=== PATIENT | female | born 1985 | race Caucasian/White ===

== ENCOUNTER → 2016-07-31 | Outpatient (CLI) | payer BC ==
--- NOTE | 2016-08-04 18:40 | DI ---
PELVIC ULTRASOUND, 07/31/2016 10:45 AM Clinical History: Pelvic pain. Previous Exam: None at this facility. Technique: Transabdominal and transvaginal scans are performed. 50 x 65 x 100 mm. There is a septum in the central uterine canal dividing the central uterine canal s o that there is an endometrial lining contiguous with the right cornu from the left endomet rial lining that is contiguous with the left cornu. Scans through the cervix show what apparently rep resents possibly 2 different uterine canals, but this is not definite especially since there are perry facts at the junction between the cervix and uterus. The ovaries are normal. There are no fluid colle ctions or masses. Readin. There is a definite septum dividing the uterus and half, but we are unable to confirm that there are 2 separate cervical canals. 2. Both ovaries are normal. 3. On clinical exam, this patient apparently has a thin septum dividing the vaginal canal but only a single external cervical os is visible.
== END ==
LOC: US 10:40
PROVIDERS: ATTEND Obstetrics & Gynecology
DX: N94.6 Dysmenorrhea, unspecified (principal); Q51.818 Other congenital malformations of uterus; R10.2 Pelvic and perineal pain; N97.9 Female infertility, unspecified
CPT/HCPCS: 76830; 76856

== ENCOUNTER 2018-01-21 16:23 | Observation (INO) ==
[2018-01-21 16:52] LABS: Hematocrit [HCT] 34.9 % (37.0-47.0); Hemoglobin [HGB] 11.5 g/dL (12.0-16.0); MEAN CORPUSCULAR HEMOGLOBIN 30.8 PG (27-31); MEAN CORPUSCULAR VOLUME 93.6 FL (81-99); MEAN PLATELET VOLUME 9.5 FL (7.4-12.2); RED BLOOD COUNT 3.73 10^6/uL (4.20-5.40)
[2018-01-21 17:05] LABS: BLOOD UREA NITROGEN 11 mg/dL (7-22); BUN/CREATININE RATIO 13.75 (6-20); SERUM ALBUMIN 3.3 g/dL (3.5-4.8)
[2018-01-21] MEDS ORDERED: LIDOCAINE W/ SODIUM BICARB 0.5 ML SYR SUBD PRN (17:49)
[2018-01-21] MEDS ORDERED: Ondansetron ODT Tab 4 MG TAB PO PRN (17:49)
[2018-01-21] MEDS ORDERED: ONDANSETRON 4 MG/2 ML VIAL IVP PRN (17:49)
[2018-01-21] MEDS ORDERED: CALCIUM CARBONATE 500 MG (TUMS) CHEWABLE TABLET PO PRN (17:49)
--- NOTE | 2018-01-21 18:00 | OB.PROGRES ---
Interval History: The patient is a 32-year-old at 33 and one sevenths weeks who started feeling poorly this afternoon with lightheadedness. 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 Repeat blood pressure showed a systolic blood pressure 170. The patient did not have a headache or right upper quadrant pain. The patient went home so that she could then presented to [facility] and she took her blood pressure 1 more time and the blood pressure was 180/90. The patient is not sure if her blood pressure cuff at home has been calibrated recently. The patient had called my office and talked to my nurse and the nurse suggested that she present to labor and delivery. The patient went to labor and delivery and her first blood pressure was noted to be 161/93 and a repeat blood pressure was 142/84. The patient denies headache or right upper quadrant pain. Follow-up blood pressures have mainly been normal in the supine position with a left or right tilt. The patient states that she had a history of elevated blood pressures with her second with blood pressures in the 140s over 90s. Patient states that she was not specifically diagnosed with preeclampsia. This has essentially been uncomplicated. The patient does have hypothyroidism and she is currently taking levothyroxine. 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 The patient has a history of 2 C-sections. The patient desires a repeat and possibly a tubal ligation. The patient denies headache or right upper quadrant pain. Please see the H&P below from the initial OB visit. The patient is a 32-year-old white female with LMP who had an ultrasound on 07/15/2017 which showed an early intrauterine at 5-6/7 weeks with cardiac activity. The patient's history is significant for uterine didelphys with the IUP located on the left uterine cavity. Both ovaries were normal. The patient has been taking micronized progesterone since that time. Additionally, the patient has hypothyroidism and was on 175 g of Synthroid and was increased to 100 g of Synthroid or levothyroxine at the time of diagnosis of the early IUP. The patient has not had any bleeding. No pain. The patient presents today for her first OB appointment. 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 The patient cannot recall. Past surgical history significant for times tube for breech. No D&Cs for her to SABs. No known drug allergies No tobacco, occasional alcohol, none since she thought she was . No drugs. Current medications multivitamin and levothyroxine 200 g daily. [employer] history with menarche age 10 or 11. Regular cycle history. No abnormal Pap smear history with last Pap smear being July 2014 but HPV was not completed at that time. No STI history. OB history was x2 for breech presentations. 2 miscarriages with D&C history. Intake Chief Complaint: Menstrual irregularity Note(s): Pt in office for NOB visit. Had US on 07/15/17. 5 6/7 wks Allergies Allergy/AdvReac Type Severity Reaction Status Date / Time No Known Allergies Allergy Unverified 07/30/17 08:51 Home Medications Medication Instructions Recorded Confirmed Type Xyl129/Iron Fum/Folic/Docusate 1 tab PO DAILY tab 02/06/17 History [ 19 Tablet] levothyroxine 200 mcg tablet 200 mcg PO .COMPLEX #30 tab 07/15/17 07/15/17 Rx progesterone micronized 200 mg 200 mg PO BID #60 cap 07/15/17 07/15/17 Rx capsule Is last menstrual period known: LMP known Last menstrual period: 06/03/17 Visit Vitals 07/30/17 08:50 Height 5 ft 6 in Weight 195 lb Body Mass Index (BMI) 31.4 Body Surface Area 2.06 Blood Pressure 100/72 Blood Pressure Position Sitting Respiratory Rate 18 Pulse Rate 76 Pulse Ox 99 Oxygen Delivery Method room air [facility]* Medical History Hypothyroidism affecting in first trimester (Acute) Previous section (Acute) Early stage of (Acute) Hypothyroidism Surgical History History of extraction of renal calculus (~2005) Status post colonoscopy (~2005) Status post primary low transverse section (02/06/05) Status post primary low transverse section (01/13/08) Family History Mother Hypothyroidism BROTHER Hypothyroidism BROTHER Hyperthyroidism Review of Systems Const Denies fatigue, Denies fever(s), Denies weight gain, Denies weight loss, Denies headache(s) Eyes Denies itchy eyes, Denies blurry vision, Denies diplopia, Denies pain, Denies loss of vision ENT Denies headache(s), Denies nasal discharge, Denies nasal obstruction, Denies sore throat, Denies abnormal hearing Card Denies chest pain, Denies claudication, Denies palpitations, Denies pedal edema , Denies dyspnea Resp Denies cough, Denies wheezing, Denies dyspnea GI Denies abdominal pain, Denies nausea, Denies vomiting, Denies diarrhea, Denies constipation Denies dysuria, Denies hematuria, Denies urinary frequency, Denies vaginal discharge Musc Denies back pain, Denies joint swelling, Denies muscle weakness, Denies abnormal gait Skin Denies lesions, Denies changing lesions, Denies pruritus, Denies rash Neuro Denies abnormal gait, Denies focal weakness, Denies headache(s), Denies loss of vision, Denies abnormal hearing Psych Denies anxiety, Denies irritability, Denies abnormal sleep pattern Endo Denies fatigue, Denies palpitations Adis/Lymph Denies easy bruising, Denies lymphadenopathy Aller/Immun Denies uticaria, Denies seasonal rhinorrhea, Denies itchy eyes, Denies wheezing Exam Const General: comfortable and cooperative; no in distress Orientation: oriented x3 and alert Resp Effort & Inspection: normal respiratory effort; no labored, pursed lip breathing , retractions, stridor or audible wheezes Auscultation: clear to auscultation bilaterally; no crackles, rales, diminished lung sounds, rhonchi or wheezes Cardio Rhythm: regular rhythm Heart Sounds: S1 normal and S2 normal; no murmur, rub, gallop or click GI Inspection: normal to inspection; no distended Palpation: soft; no guarding, aortic enlargement, hernia, mass or rigid Auscultation: normal bowel sounds Other: She has a vaginal septum. The cervix on the patient's left side was visualized. No blood. Bimanual exam showed that the uterus was midplane uterus is slightly enlarged. Limited transvaginal ultrasound showed IUP with cardiac activity around 150. [place]-rump measurements were measuring around 7-1/7 week to 7-2/7 weeks. These were not the best crown-rump measurements. The patient will return in 2- 3 weeks for measurements. Neuro General: alert, oriented x3 and normal sensation to monofilament Cranial Nerves: CN's II-XI intact bilaterally, EOM intact bilaterally and PERRL Cognition: normal cognition Speech: speech normal Gait: normal gait Psych Appearance: grossly normal Mental Status: mental status grossly normal Speech and Movement: speech and movement normal Mood and Affect: mood and affect normal Assessment & Plan Problems 1. Early stage of Z34.90 Patient has an early gestation with cardiac activity. By the initial ultrasound that she had on 07/15/2017, the TRINI would be 03/12/2018. I will have the patient return in 2-3 weeks so that I can view a good crown-rump length and get a good measurement. Currently, I will use the TRINI of 2017. The patient will continue to take her micronized progesterone until 13-6/ 7 weeks. New OB labs were ordered. OB literature was given to the patient. Precautions were discussed. The patient has a history of 2 sections for breech presentation and a repeat will be planned. The patient also would like a tubal ligation at that time. 2. Previous section Z98.891 Patient has a history of x2. A repeat section will be performed. The placental location will be examined at the 20 week survey ultrasound. 3. Hypothyroidism affecting in first trimester O99.281; E03.9 Patient does have hypothyroidism. Her levothyroxine was increased to 200 g on 07/15/2017. With the new OB labs today, I will check a free T4 and TSH and then every 4 weeks at least a TSH. Plan The patient will follow-up in 2-3 weeks for repeat vaginal ultrasound to confirm dating. New OB labs. Objective - Cervical Exam Cervical Exam: Deferred currently [place]: Rare contraction Heart Rate: Variability - Labs CBC and BMP: 01/21/18 16:45 01/21/18 16:45 - Vital Signs Last Taken Vital Signs: Vital Signs - Last Taken Temperature 97.8 F 01/21/18 16:41 Pulse Rate 91 01/21/18 16:41 Respiratory Rate 18 01/21/18 16:41 Blood Pressure 142/84 01/21/18 16:41 Pulse Ox 98 01/21/18 16:41 - Additional Details Additional Details: Lungs clear to auscultation Heart regular rate and rhythm Abdomen is gravid and soft and nontender without guarding or rebound Extremity had 1+ edema bilaterally Reflexes were 2+ bilaterally No clonus Assessment and Plan - Assessment / Plan Additional Assessment/Plan Details: Assessment: IUP 33-07/14 week with elevated blood pressures today at work and then here at [facility] initially. The patient denies headache or right upper quadrant pain. Initial labs were normal. The patient's creatinine was 0.8 which is the upper limits for normal for an OB patient. Liver function tests were normal. Platelets were normal. Patient is not hemoconcentrated. Repeat blood pressures while the patient is supine with a left or right tilt have been normal. Plan: With the patient's elevated blood pressures at work but also her initial blood pressure here of 161/93, I would like to observe the patient and complete serial blood pressures but also collected 24-hour urine for total protein. Also , I offered the patient betamethasone 12 mg IM now and repeat in 24 hours for lung maturity in case the patient's hypertension worsens and the patient develops preeclampsia with severe signs or symptoms and would require an early delivery. The patient and I discussed the betamethasone for lung maturity and we discussed that sometimes the patient would have difficulty sleeping for a couple days and some mood swings but other than that there are not a lot of complications or side effects of the betamethasone. The patient agreed to the betamethasone. I will check labs again tomorrow afternoon unless the patient's blood pressures elevate overnight. An IV will be started. The patient specific gravity was 1.005 so I will not give her a bolus. Currently, the patient may have a regular diet but the patient's blood pressures elevate I will make her nothing by mouth.
[2018-01-21] MEDS: BETAMET ACET/BETAMET NA PH 6 MG/1 ML - 5 ML IM SCH (18:30)
[2018-01-21] MEDS: Lactated Ringers 1,000 ML PRIMARY IV SCH ×2 (18:40→23:14)
[2018-01-22] MEDS: Lactated Ringers 1,000 ML PRIMARY IV SCH ×3 (07:31→23:08)
[2018-01-22] MEDS: Prenatal Multivitamin Tab 1 TAB TAB PO SCH (09:00)
--- NOTE | 2018-01-22 09:00 | DI ---
US OB , Limited,01/22/2018 7:00 AM: Clinical History: Hypertension. Previous Exam: October 01, 2017 Findings: Multiple transabdominal grayscale and color Doppler sonographic images are obtained through the pelvi s, and demonstrate a single live intrauterine gestation. Amniotic fluid index is normal (14.1 cm). Estimated gestational age is determined by a composite of biparietal diameter, head circumference, ab dominal circumference and femur length yielding an estimated gestational age by ultrasound of 33 week s 2 days. Detected Doppler heart tones measured 136 beats per minute. Estimated weight is 2098 g (33rd percentile). Impression: Single live intrauterine gestation with size equal to dates. Fetus measures 33rd percentile for estimated weight.
--- NOTE | 2018-01-22 09:12 | OB.PROGRES ---
Interval History: The patient states that she has no headache. The patient has been feeling more contractions since she was notified that she was having contractions. The patient states that now that she thinks about it, the patient has been having some contractions for some time. Positive movement, no leak of fluid, no bleeding. The patient is collecting a 24-hour urine for total protein. The patient had an ultrasound this morning from radiology. Objective - Cervical Exam Cervical Exam: Deferred currently [place]: Irregular contractions every 2-5 minutes. Sometimes more regular than others. This may be secondary to not picking up contractions well. More uterine irritability. Heart Rate Interpretation Category: Category I - Labs CBC and BMP: 01/21/18 16:45 01/21/18 16:45 - Vital Signs Last Taken Vital Signs: Vital Signs - Last Taken Temperature 98.0 F 01/21/18 22:00 Pulse Rate 75 01/22/18 05:00 Respiratory Rate 16 01/21/18 22:00 Blood Pressure 134/82 01/22/18 05:00 Pulse Ox 96 01/22/18 00:00 - Additional Details Additional Details: Lungs clear to auscultation Heart regular rate and rhythm Abdomen is gravid and soft and nontender Extremities with 1+ edema bilaterally no Hom[place]. Reflexes 1+ bilaterally. Assessment and Plan - Assessment / Plan Additional Assessment/Plan Details: Assessment: IUP 33-2/7 weeks with elevated blood pressures on admission. Patient asymptomatic. The patient has contractions. A fibronectin was completed. Contractions are every 2-5 minutes and currently more frequently. A growth scan was completed this morning and EFW 33rd percentile. SJ 14 cm. Baby in the breech position. The patient's blood pressures have been normal. Yesterday she had another mildly elevated blood pressure prior to showering but since then her blood pressures have been normal while she is on bed rest. 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 Systolic of 170. Patient is status post 1 dose of betamethasone. Second dose today. Plan: Continue to collect 24 urine for total protein fibronectin pending Continue to observe blood pressures. I would like to check the patient's cervix after I have the fibronectin results and after the patient finishes breakfast. I will consider using nifedipine for the patient's contractions. However, this will mask the patient's hypertension results. I would like to check another CBC and CMP this afternoon.
[2018-01-22 15:14] LABS: BASOPHILS # (AUTO) 0.03 10*3/UL; BASOPHILS % (AUTO) 0.1 % (0-1); EOSINOPHILS # (AUTO) 0 10*3/UL; EOSINOPHILS % (AUTO) 0 % (0-8); Hematocrit [HCT] 35.2 % (37.0-47.0); Hemoglobin [HGB] 11.9 g/dL (12.0-16.0); LYMPHOCYTES # (AUTO) 2.85 10*3/uL; MEAN CORPUSCULAR HEMOGLOBIN 31.6 PG (27-31); MEAN CORPUSCULAR HGB CONC 33.8 g/dL (33-37); MEAN CORPUSCULAR VOLUME 93.6 FL (81-99); MEAN PLATELET VOLUME 9.8 FL (7.4-12.2); MONOCYTES # (AUTO) 1.38 10*3/UL (0.3-0.8); MONOCYTES % (AUTO) 6.2 % (5-15); NEUTROPHILS % (AUTO) 79.5 % (50-80); RED BLOOD COUNT 3.76 10^6/uL (4.20-5.40)
[2018-01-22 15:16] LABS: PLATELET MORPHOLOGY COMMENT NORMAL MORPHOLOGY (NORM); RBC MORPHOLOGY COMMENT NORMAL MORPHOLOGY (NORM); WBC MORPHOLOGY COMMENT NORMAL MORPHOLOGY (NORM)
[2018-01-22] MEDS: BETAMET ACET/BETAMET NA PH 6 MG/1 ML - 5 ML IM SCH (17:37)
--- NOTE | 2018-01-22 17:38 | OB.PROGRES ---
Interval History: Patient states that she is doing well and not feeling as many contractions. The patient did make a comment that she has not felt her baby move quite as much since she has been here in the hospital compared other days. The patient actually states that yesterday the baby was moving very frequently and significantly but since she presented to the hospital after having high blood pressures at work, the baby is not move quite as much. No leak of fluid. No bleeding. No headaches. Objective - Cervical Exam Cervical Exam: I checked the patient's cervix earlier about 5 hours ago and her cervical OS was fingertip. fibronectin was negative. [place]: Infrequent contractions. Heart Rate Interpretation Category: Category I (There are periods of time when there are 15 x 15 x2 accelerations but these are infrequent with reviewing the strip.) - Labs CBC and BMP: 01/22/18 15:06 01/22/18 15:06 - Vital Signs Last Taken Vital Signs: Vital Signs - Last Taken Temperature 98.1 F 01/22/18 13:54 Pulse Rate 86 01/22/18 12:05 Respiratory Rate 19 01/22/18 13:54 Blood Pressure 132/84 01/22/18 12:05 Pulse Ox 87 01/22/18 15:46 - Additional Details Additional Details: Lungs clear to auscultation Heart regular rate and rhythm Abdomen soft and gravid and nontender Reflexes were 2+ bilaterally and no clonus Assessment and Plan - Assessment / Plan Additional Assessment/Plan Details: Assessment: IUP 33-2/7 weeks with hypertension. Possible preeclampsia. 24- hour urine results pending. Review of blood pressures has shown that the patient's blood pressures are elevated in the mild range intermittently throughout today. Patient is asymptomatic with no headache or right upper quadrant pain. Repeat labs this afternoon showed normal creatinine at 0.7 which was slightly decreased from the 0.8 yesterday and normal liver function tests. Platelets were normal. The baby's movement has been decreased somewhat today and whether that is secondary to the patient's hypertension I am not sure. Gross scan this morning showed EFW 33rd percentile and SJ was 14 cm. Contractions have decreased in frequency without intervention except for IV fluids and by mouth fluids. Also decreased activity. Plan: I would like to check a BPP her biophysical profile this evening secondary to the decreased movement and the category 1 tracing but the 15 x 15 heart rate accelerations are infrequent. 24 hour urine results for total protein are pending Betamethasone 12 mg IM injection at 1800 hrs. this evening and then the patient will be steroid complete tomorrow evening. Await biophysical profile results.
--- NOTE | 2018-01-22 18:22 | OB.PROGRES ---
Objective - Labs CBC and BMP: 01/22/18 15:06 01/22/18 15:06 - Vital Signs Last Taken Vital Signs: Vital Signs - Last Taken Temperature 98.0 F 01/22/18 14:00 Pulse Rate 91 01/22/18 17:00 Respiratory Rate 18 01/22/18 14:00 Blood Pressure 127/88 01/22/18 17:00 Pulse Ox 87 01/22/18 15:46 Assessment and Plan - Assessment / Plan Additional Assessment/Plan Details: Biophysical profile was 8 out of 8. Patient was informed of this.
[2018-01-22 18:28] LABS: 24 HOUR URINE TOTAL VOLUME 5450 ML
[2018-01-22] MEDS: NIFEdipine 10 MG CAPSULE PO SCH (23:01)
[2018-01-22 23:54] LABS: BLOOD UREA NITROGEN 13 mg/dL (7-22); BUN/CREATININE RATIO 18.57 (6-20); SERUM ALBUMIN 3.5 g/dL (3.5-4.8); Uric Acid 4.2 mg/dl (2.5-6.2)
[2018-01-23] MEDS: Lactated Ringers 1,000 ML PRIMARY IV SCH (02:45)
[2018-01-23] MEDS: NIFEdipine 10 MG CAPSULE PO SCH ×2 (02:46→06:52)
--- NOTE | 2018-01-23 07:41 | OB.PROGRES ---
Interval History: The patient states that she has no headache. No right upper quadrant pain the patient has noticed some contractions and overnight the patient was started on nifedipine for her contractions. The patient states the baby is moving more than it moved yesterday. No gush of fluid or bleeding. The patient has noticed some back pain and cramping perhaps with some contractions. Of note, the patient has not been taking her Synthroid from home. The patient would like it prescribed. Objective - Cervical Exam Cervical Exam: Deferred exam today. Yesterday fingertip and posterior [place]: Intermittent contractions sometimes every 3 or 4 minutes and sometimes more infrequent. Night the patient had a couple runs of every 2-3 minute contractions Heart Rate Interpretation Category: Category I (I reviewed heart rate tracing from overnight. There were more accelerations of 15 x 15 Occasional very mild variable) - Labs CBC and BMP: 01/22/18 15:06 01/22/18 15:06 - Vital Signs Last Taken Vital Signs: Vital Signs - Last Taken Temperature 98.0 F 01/22/18 14:00 Pulse Rate 75 01/23/18 07:00 Respiratory Rate 18 01/22/18 14:00 Blood Pressure 117/76 01/23/18 04:00 Pulse Ox 96 01/23/18 05:00 - Additional Details Additional Details: Lungs clear to auscultation Heart regular rate and rhythm Abdomen is gravid soft and nontender without guarding or rebound Extremity with 1+ pitting edema bilaterally 2+ reflexes bilaterally No clonus 926 mg of protein in 24-hour urine with 5400 mL of urine Assessment and Plan - Assessment / Plan Additional Assessment/Plan Details: Assessment: IUP 33-2/7 weeks with preeclampsia with mildly elevated blood pressures and proteinuria of 926 mg in 24 hours. However, the patient presented due to the fact that she had elevated blood pressures at work of 160s over 90s and then 170s over 90s after feeling lightheaded. The patient then stopped by her house before she presented to [facility] and she had a systolic blood pressure of 180. In labor and delivery her first blood pressure was 161/93 but other than that very first blood pressure the patient's blood pressures have been in the mild range in the 140s over 90s or in the normal range. The patient denies headache or right upper quadrant pain and the patient's blood work labs showed normal liver function tests, creatinine was 0.7 yesterday which was decreased from 0.8 and her platelets are normal as well as LDH. Patient has received 2 doses of betamethasone and will be steroid complete this afternoon at 1800 hrs. The patient has had some contractions but her cervix was fingertip yesterday. The patient is status post x2. The patient was placed on nifedipine last night and received 3 doses of nifedipine. Unfortunately, the nifedipine may mask higher blood pressures. The patient has a uterine didelphys and the is in the left uterine horn from an early ultrasound. 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 The patient has hypothyroidism and missed her dose yesterday. Plan: I will discontinue the patient's nifedipine since the nifedipine could mask higher blood pressures. Levothyroxine 200 g tablet was prescribed daily to start this morning I will check a CBC and a gestational hypertension chemistry this morning I will consider talking with maternal- medicine later today to obtain there thoughts about the preeclampsia since the patient is only 33-2/7 weeks. The patient is status post 2 doses of betamethasone and will be steroid complete this afternoon at 1800 hrs.
[2018-01-23 08:03] LABS: Hematocrit [HCT] 37.7 % (37.0-47.0); Hemoglobin [HGB] 12.6 g/dL (12.0-16.0); MEAN CORPUSCULAR HEMOGLOBIN 31.3 PG (27-31); MEAN CORPUSCULAR HGB CONC 33.4 g/dL (33-37); MEAN CORPUSCULAR VOLUME 93.5 FL (81-99); MEAN PLATELET VOLUME 9.8 FL (7.4-12.2); RED BLOOD COUNT 4.03 10^6/uL (4.20-5.40)
[2018-01-23 08:21] LABS: BLOOD UREA NITROGEN 13 mg/dL (7-22); BUN/CREATININE RATIO 18.57 (6-20); SERUM ALBUMIN 3.8 g/dL (3.5-4.8); Uric Acid 4.7 mg/dl (2.5-6.2)
--- NOTE | 2018-01-23 08:38 | DI ---
US OB Biophys Profile w/NST,01/22/2018 5:25 PM: Clinical History: Decreased motion. Previous Exam: January 22, 2018 at 7:55 AM. Findings: Multiple grayscale and color Doppler sonographic images are obtained through the pelvis, and demonstr ate a single live intrauterine gestation in breech presentation. Amniotic fluid level is subjectively normal and measures 13.5 cm. There is spontaneous motion of the limbs and hemidiaphragms. The heart measures 149 beats per minute. The placenta is anterior and grade1. There is an anechoic area adjacent to the placenta. Impression: Biophysical profile 02/12.
[2018-01-23] MEDS: LEVOTHYROXINE 100 MCG TABLET PO SCH (08:43)
[2018-01-23] MEDS: Prenatal Multivitamin Tab 1 TAB TAB PO SCH (09:14)
--- NOTE | 2018-01-23 12:14 | OB.PROGRES ---
Interval History: The patient states that her baby has been moving a lot over the last half hour. Patient is without a headache. The patient is just interested in the plan. Patient also would like to take Colace since she has not taken that for a couple days. She did receive her Synthroid this morning. Objective - Cervical Exam Heart Rate Interpretation Category: Category I - Labs CBC and BMP: 01/23/18 07:55 01/23/18 07:55 - Vital Signs Last Taken Vital Signs: Vital Signs - Last Taken Temperature 97.9 F 01/23/18 07:00 Pulse Rate 101 H 01/23/18 11:00 Respiratory Rate 20 01/23/18 07:00 Blood Pressure 132/80 01/23/18 11:00 Pulse Ox 98 01/23/18 08:00 Assessment and Plan - Assessment / Plan Additional Assessment/Plan Details: Assessment: IUP 33-2/7 weeks with preeclampsia without signs or symptoms of severe preeclampsia. Patient has had one elevated blood pressure in the severe range on admission of 161/93 otherwise the patient has had several blood pressures in the low 140s over 90s and many blood pressures in the normal range. The patient does have proteinuria with 926 mg of protein in 24 hours. The patient has had some contractions but no cervical dilation. Contractions are not regular. The patient was placed on nifedipine overnight but this has been discontinued. 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 The patient had a growth scan yesterday and EFW was 33rd percentile and SJ was 14 Patient has hypothyroidism taking 200 g of levothyroxine Patient is status post betamethasone 12 mg IM for 2 doses and will be steroid complete this afternoon at 1800 hrs. Plan: I spoke with maternal- medicine about this patient in detail. After talking with maternal- medicine, Currently my plan is to keep the patient for one more day to observe blood pressures and labs tomorrow morning and then if the patient's blood pressures are still normal or in the mild range, the patient will go home with close follow-up. If the patient does have another blood pressure in the severe range, I will contact maternal- medicine for transfer and placed the patient on magnesium sulfate. The patient will be given strict precautions to return for headache that is not resolving, right upper quadrant pain, not feeling well, or increased contractions.
--- NOTE | 2018-01-23 12:45 | DI ---
US OB , Limited,01/23/2018 10:09 AM: Clinical History: Hypoechoic area near the placenta. Previous Exam: January 22, 2018 Findings: Real-time sonography was performed of the area of concern involving the inferior margin of the placen ta. There is no evidence of placental abruption. Detected Doppler heart tones measure 138 beats per minute. The image seen on the transverse images is due to some overhang of the placenta and visualization of the sulcus. Impression: No evidence of placental abruption.
[2018-01-23] MEDS: DOCUSATE 100 MG CAPSULE PO SCH (15:15)
[2018-01-24 03:26] VITALS: TEMP 97.9
[2018-01-24] MEDS: Lactated Ringers 1,000 ML PRIMARY IV SCH ×3 (04:19→06:58)
[2018-01-24] MEDS: DOCUSATE 100 MG CAPSULE PO SCH ×2 (06:33→09:14)
[2018-01-24] MEDS: LEVOTHYROXINE 100 MCG TABLET PO SCH (06:39)
[2018-01-24 07:12] VITALS: RESP 18
[2018-01-24 07:25] LABS: Hematocrit [HCT] 35.3 % (37.0-47.0); Hemoglobin [HGB] 11.5 g/dL (12.0-16.0); MEAN CORPUSCULAR HEMOGLOBIN 30.7 PG (27-31); MEAN CORPUSCULAR HGB CONC 32.6 g/dL (33-37); MEAN CORPUSCULAR VOLUME 94.1 FL (81-99); MEAN PLATELET VOLUME 9.9 FL (7.4-12.2); RED BLOOD COUNT 3.75 10^6/uL (4.20-5.40)
[2018-01-24 07:43] LABS: BLOOD UREA NITROGEN 14 mg/dL (7-22); BUN/CREATININE RATIO 23.33 (6-20); SERUM ALBUMIN 3.1 g/dL (3.5-4.8); Uric Acid 4.6 mg/dl (2.5-6.2)
[2018-01-24] MEDS: Prenatal Multivitamin Tab 1 TAB TAB PO SCH (09:14)
[2018-01-24 09:57] VITALS: O2SAT 94
--- NOTE | 2018-01-24 10:29 | OB.PROGRES ---
Interval History: The patient states that her baby is moving well this morning. Occasional contractions. No bleeding. No gush of fluid. This morning she was flushed somewhat. No headache. Patient wants to take a shower. The patient states that she would like to go home if she could go home to sleep in her own bed. The patient understands that she would be on decreased activity and mainly with couch rest. Patient has good family support at home. Her 2 daughters will be able to help and her also. Her in-laws live close by also. Objective - Cervical Exam Cervical Exam: Deferred exam [place]: Irregular intermittent contractions Heart Rate Interpretation Category: Category I - Labs CBC and BMP: 01/24/18 07:10 01/24/18 07:10 - Vital Signs Last Taken Vital Signs: Vital Signs - Last Taken Temperature 97.9 F 01/24/18 06:35 Pulse Rate 75 01/24/18 09:00 Respiratory Rate 18 01/24/18 06:35 Blood Pressure 133/82 01/24/18 09:00 Pulse Ox 94 01/24/18 09:00 - Additional Details Additional Details: Nontoxic appearing Lungs clear to auscultation Heart regular rate and rhythm Abdomen is gravid, soft and nontender without guarding or rebound Extremity with 1+ pitting edema 2+ reflexes bilaterally with no clonus Assessment and Plan - Assessment / Plan Additional Assessment/Plan Details: Assessment: IUP 33-3/7 weeks with preeclampsia without severe signs or symptoms currently. The patient has had one elevated blood pressure in the severe range when she was admitted 3 days ago but otherwise her blood pressures have been in the mild range were normal. The patient has not had a headache or right upper quadrant pain. All of her blood labs have been normal. Her 24 urine for total protein was elevated at 926 mg. Patient's blood pressures this morning have been in the mild range and the low 140s over 90s. The patient did have one blood pressure with a systolic of 150. The patient stated that she felt a little flushed this morning but nothing significant. No headaches. The baby is been moving well and category 1 heart rate tracing. Irregular contractions. The patient is status post a complete betamethasone steroid course. The patient has a history of section 2 Plan: The patient would like to go home and currently I am comfortable sending the patient home. The patient will be on decreased activity at home with mainly couch rest. The patient may have bathroom privileges and also get something quick to eat but no prolonged cooking in the kitchen or other prolonged activity standing. The patient should not take walks currently but may of course ambulate in her home but also to the car and to the hospital. The patient should return to the hospital if she is not feeling well, if she has a headache that is not resolving or right upper quadrant pain. kick count precautions were also discussed with the patient and also labor precautions discussed with the patient. The patient will return in 2 days for a gestational hypertension panel, blood pressure checks and a nonstress test. If the patient is doing well the patient should return in 2 days for nonstress tests and if the patient continues to do well she should have regular antepartum testing 2 times per week and also see me in the clinic. I did discuss with the patient that since she has preeclampsia without severe signs or symptoms currently but did have an elevated blood pressure in the severe range previously, the patient does have an increased likelihood of developing preeclampsia with severe signs or symptoms. If the patient does this before 36 weeks, the patient may be transferred to [place], [place] secondary to NICU availability. Patient expressed understanding. If the patient does develop preeclampsia with severe signs or symptoms, magnesium sulfate would be offered and administered.
--- NOTE | 2018-01-24 10:41 | DCSUMMARY ---
Hospitalization Summary Admit Date: 01/21/18 Discharge Date: 01/24/18 Primary Diagnosis:: IUP 33-3/7 weeks, preeclampsia without severe signs Secondary Diagnosis:: Preeclampsia without severe signs or symptoms Proteinuria of with 926 mg of protein in 24 hours contractions Hospital Course: Assessment: IUP 33-3/7 weeks with preeclampsia without severe signs or symptoms currently. The patient has had one elevated blood pressure in the severe range when she was admitted 3 days ago but otherwise her blood pressures have been in the mild range were normal. The patient has not had a headache or right upper quadrant pain. All of her blood labs have been normal. Her 24 urine for total protein was elevated at 926 mg. Patient's blood pressures this morning have been in the mild range and the low 140s over 90s. The patient did have one blood pressure with a systolic of 150. The patient stated that she felt a little flushed this morning but nothing significant. No headaches. The baby is been moving well and category 1 heart rate tracing. Irregular contractions. The patient is status post a complete betamethasone steroid course. The patient has a history of section 2 Plan: The patient would like to go home and currently I am comfortable sending the patient home. The patient will be on decreased activity at home with mainly couch rest. The patient may have bathroom privileges and also get something quick to eat but no prolonged cooking in the kitchen or other prolonged activity standing. The patient should not take walks currently but may of course ambulate in her home but also to the car and to the hospital. The patient should return to the hospital if she is not feeling well, if she has a headache that is not resolving or right upper quadrant pain. kick count precautions were also discussed with the patient and also labor precautions discussed with the patient. The patient will return in 2 days for a gestational hypertension panel, blood pressure checks and a nonstress test. If the patient is doing well the patient should return in 2 days for nonstress tests and if the patient continues to do well she should have regular antepartum testing 2 times per week and also see me in the clinic. I did discuss with the patient that since she has preeclampsia without severe signs or symptoms currently but did have an elevated blood pressure in the severe range previously, the patient does have an increased likelihood of developing preeclampsia with severe signs or symptoms. If the patient does this before 36 weeks, the patient may be transferred to [place], [place] secondary to NICU availability. Patient expressed understanding. If the patient does develop preeclampsia with severe signs or symptoms, magnesium sulfate would be offered and administered. Exam - Vitals Vital Signs: Vital Signs Temperature 97.9 F Temperature Source Oral Pulse Rate [Pulse Oximeter] 75 Pulse Rate 73 Respiratory Rate 18 Blood Pressure [Right Arm] 133/82 Pulse Ox 94 Oxygen Delivery Method Room Air Height 5 ft 6 in Weight 216 lb
[2018-01-24 11:38] VITALS: BP 138/89
== END 2018-01-24 12:00 | disposition home or self-care (01) ==
LOC: OBOP 16:23 → OBIP 16:23
PROVIDERS: ADMIT Obstetrics & Gynecology; ATTEND Obstetrics & Gynecology